=== PATIENT | female | born 1945 | race Caucasian/White ===

== ENCOUNTER 2020-03-31 11:06 | Observation (INO) ==
[2020-03-31] MEDS ORDERED: ENOXAPARIN 100 MG/ML SYRINGE SUBCUT STA (11:52)
[2020-03-31] MEDS ORDERED: ASPIRIN 325 MG TABLET PO STA (11:52)
[2020-03-31] MEDS ORDERED: NITROGLYCERIN SL 0.4 MG TABLET SL PRN (11:52)
[2020-03-31 12:28] LABS: Basophils # 0.1 10*3/uL (0.0-0.2); Basophils % 0.9 % (0.0-0.8); Eosinophils # 0.4 10*3/uL (0.0-0.87); Eosinophils % 6.9 % (0.00-10.9); Hematocrit 40.3 VOL% (35.7-47.0); Hemoglobin 13.1 GM/DL (12.0-16.0); Immature Granulocytes % 0.2 %; Immature Granulocytes Absolute 0.01 #; Lymphocytes # 1.3 10*3/uL (1.4-4.0); Lymphocytes % 23.6 % (21.3-54.2); Mean Corpuscular HGB Conc 32.5 GM/DL (32-36); Mean Corpuscular Volume 91.2 FL (87-102); Mean Platelet Volume 11.1 FL (9.6-12.0); Monocytes % 7.6 % (1.7-12.7); Neutrophils % 60.8 % (38.7-73.9); Platelet Count 231 T/CUMM (130-400); Red Blood Count 4.42 MC/CUMM (3.8-5.5); Red Cell Distribution Width 13.6 % (9.3-17.3); White Blood Count 5.4 T/CUMM (4-12)
[2020-03-31 12:52] LABS: Albumin 3.8 G/DL (3.4-5.0); Bilirubin,Total 0.5 MG/DL (0.2-1.0); Calcium 9.2 MG/DL (8.5-10.1); Osmolality,Calculated 284.1 MOS/KG (273-304); Total Protein 6.7 G/DL (6.4-8.3)
[2020-03-31] MEDS ORDERED: ZALEPLON 5 MG CAPSULE PO PRN (14:08)
[2020-03-31] MEDS ORDERED: SIMETHICONE CHEW 125 MG TABLET PO PRN (14:08)
[2020-03-31] MEDS ORDERED: MAGNESIUM SULF RIDER 2 GM in PREMIX 1 EACH IV PRN (14:08)
[2020-03-31] MEDS ORDERED: hydrALAZINE 20 MG/1 ML VIAL IV PRN (14:08)
[2020-03-31] MEDS ORDERED: MAGNESIUM SULF RIDER 4 GM in PREMIX 1 EACH IV PRN (14:08)
[2020-03-31] MEDS ORDERED: MORPHINE 4 MG/1 ML VIAL IV PRN (14:08)
[2020-03-31] MEDS ORDERED: BISACODYL 5 MG TABLET PO PRN (14:08)
[2020-03-31] MEDS ORDERED: diphenhydrAMINE CAP 25 MG CAPSULE PO PRN (14:08)
[2020-03-31] MEDS ORDERED: POTASSIUM CHLORIDE 20 MEQ TABLET PO PRN (14:08)
[2020-03-31] MEDS ORDERED: ONDANSETRON 4 MG/2 ML VIAL IV PRN (14:08)
[2020-03-31] MEDS ORDERED: CALCIUM CARBONATE CHEW 500 MG TABLET PO PRN (14:08)
[2020-03-31] MEDS ORDERED: LACTULOSE 20 GM/30 ML UDCUP PO PRN (14:08)
[2020-03-31] MEDS ORDERED: ALUMINUM/MAGNES/SIMETH MAX STR 30 ML UDCUP PO PRN (14:08)
[2020-03-31] MEDS ORDERED: ACETAMINOPHEN 325 MG TABLET PO PRN (14:08)
[2020-03-31] MEDS: NITROGLYCERIN 2% OINT 1 INCH/GM PACK TOP SCH ×2 (15:30→18:19)
[2020-03-31] MEDS: INSULIN LISPRO 100 UNIT/ML SUBCUT SCH ×2 (17:07→22:00)
[2020-03-31] MEDS ORDERED: INSULIN DEGLUDEC SUBCUT SCH (21:00)
[2020-03-31] MEDS ORDERED: DICLOFENAC SUBMICRONIZED 18 MG PO SCH (21:00)
[2020-03-31] MEDS ORDERED: LIRAGLUTIDE SUBCUT SCH (21:00)
[2020-03-31] MEDS: POTASSIUM CHLORIDE 8 MEQ CAPSULE PO SCH (21:25)
[2020-03-31] MEDS: TICAGRELOR 90 MG TABLET PO SCH (21:25)
[2020-03-31] MEDS: ASPIRIN EC 81 MG TABLET PO SCH (21:25)
[2020-03-31] MEDS: carvediloL 12.5 MG TABLET PO SCH (21:25)
[2020-04-01] MEDS: NITROGLYCERIN 2% OINT 1 INCH/GM PACK TOP SCH ×4 (00:56→18:45)
[2020-04-01 04:09] LABS: Basophils # 0.1 10*3/uL (0.0-0.2); Basophils % 1.3 % (0.0-0.8); Eosinophils # 0.5 10*3/uL (0.0-0.87); Eosinophils % 8.6 % (0.00-10.9); Hematocrit 37.7 VOL% (35.7-47.0); Hemoglobin 12.1 GM/DL (12.0-16.0); Immature Granulocytes % 0.4 %; Immature Granulocytes Absolute 0.02 #; Lymphocytes # 1.6 10*3/uL (1.4-4.0); Lymphocytes % 30.7 % (21.3-54.2); Mean Corpuscular HGB Conc 32.1 GM/DL (32-36); Mean Corpuscular Volume 92.6 FL (87-102); Mean Platelet Volume 11.1 FL (9.6-12.0); Monocytes % 7.9 % (1.7-12.7); Neutrophils % 51.1 % (38.7-73.9); Platelet Count 226 T/CUMM (130-400); Red Blood Count 4.07 MC/CUMM (3.8-5.5); Red Cell Distribution Width 13.6 % (9.3-17.3); White Blood Count 5.3 T/CUMM (4-12)
[2020-04-01 04:46] LABS: Blood Urea Nitrogen 25 MG/DL (7-18); Calcium 8.7 MG/DL (8.5-10.1); Estimated Glom Filtration Rate 49 ML/MIN; Glucose 119 MG/DL (74-106); HDL Cholesterol 31 MG/DL (40-60); Osmolality,Calculated 285.3 MOS/KG (273-304); Risk Ratio 3.45; Triglycerides 300 MG/DL (2-150); Troponin I < 0.015 NG/ML (0.00-0.045)
[2020-04-01] MEDS: INSULIN LISPRO 100 UNIT/ML SUBCUT SCH ×4 (07:26→21:10)
[2020-04-01] MEDS: OLMESARTAN 20 MG TABLET PO SCH (08:49)
[2020-04-01] MEDS: FENOFIBRATE 145 MG TABLET PO SCH (08:49)
[2020-04-01] MEDS: TICAGRELOR 90 MG TABLET PO SCH ×2 (08:49→21:10)
[2020-04-01] MEDS: POTASSIUM CHLORIDE 8 MEQ CAPSULE PO SCH ×2 (08:49→21:10)
[2020-04-01] MEDS: ATORVASTATIN 40 MG TABLET PO SCH (08:49)
[2020-04-01] MEDS: PANTOPRAZOLE 40 MG TABLET PO SCH (08:49)
[2020-04-01] MEDS: carvediloL 12.5 MG TABLET PO SCH ×2 (08:49→21:10)
[2020-04-01] MEDS ORDERED: ENOXAPARIN 40 MG/0.4 ML SYRINGE SUBCUT SCH (09:00)
[2020-04-01] MEDS ORDERED: NON-FORMULARY MEDICATION (Dapagliflozin [Farxiga] 10 MG) PO SCH (09:00)
[2020-04-01] MEDS ORDERED: MAGNESIUM SULF RIDER 2 GM in PREMIX 1 EACH IV PRN (10:02)
[2020-04-01] MEDS ORDERED: POTASSIUM CHLORIDE RIDER 10 MEQ in PREMIX 1 EACH IV PRN (10:02)
[2020-04-01] MEDS ORDERED: diphenhydrAMINE CAP 25 MG CAPSULE PO ONE (10:02)
[2020-04-01] MEDS ORDERED: DIAZEPAM 5 MG TABLET PO ONE (10:02)
[2020-04-01] MEDS ORDERED: LIDOCAINE 1% 20 ML VIAL ONE (10:22)
[2020-04-01] MEDS ORDERED: HYDROmorphone 2 MG/1 ML VIAL ONE (10:26)
[2020-04-01] MEDS ORDERED: MIDAZOLAM 2 MG/2 ML VIAL ONE (10:27)
[2020-04-01] MEDS ORDERED: ENOXAPARIN 60 MG/0.6 ML SYRINGE ONE (11:23)
[2020-04-01] MEDS ORDERED: LABETALOL 20 MG/4 ML SYRINGE IV ONE (11:40)
[2020-04-01] MEDS ORDERED: NITROGLYCERIN DRIP 50 MG/250 ML BOTTLE IV ONE (11:44)
[2020-04-01 13:13] LABS: Troponin I < 0.015 NG/ML (0.00-0.045)
[2020-04-01] MEDS: ASPIRIN EC 81 MG TABLET PO SCH (21:10)
[2020-04-01] MEDS: CHLORPHENIRAMINE PHENYLEPHRINE PO SCH (21:10)
[2020-04-02] MEDS: NITROGLYCERIN 2% OINT 1 INCH/GM PACK TOP SCH ×3 (00:16→12:02)
[2020-04-02 05:02] LABS: Basophils % 0.7 % (0.0-0.8); Eosinophils # 0.4 10*3/uL (0.0-0.87); Hematocrit 39.3 VOL% (35.7-47.0); Hemoglobin 12.6 GM/DL (12.0-16.0); Immature Granulocytes % 0.3 %; Immature Granulocytes Absolute 0.02 #; Lymphocytes # 0.9 10*3/uL (1.4-4.0); Lymphocytes % 14.9 % (21.3-54.2); Mean Corpuscular HGB Conc 32.1 GM/DL (32-36); Mean Corpuscular Volume 91.4 FL (87-102); Mean Platelet Volume 11.5 FL (9.6-12.0); Monocytes % 6.9 % (1.7-12.7); Neutrophils % 71.2 % (38.7-73.9); Platelet Count 217 T/CUMM (130-400); Red Cell Distribution Width 13.6 % (9.3-17.3)
[2020-04-02 05:11] LABS: Calcium 8.6 MG/DL (8.5-10.1); Osmolality,Calculated 286.3 MOS/KG (273-304)
[2020-04-02 05:15] LABS: Troponin I 0.134 NG/ML (0.00-0.045)
[2020-04-02] MEDS: INSULIN LISPRO 100 UNIT/ML SUBCUT SCH ×2 (08:13→12:02)
[2020-04-02] MEDS ORDERED: EZETIMIBE 10 MG TABLET PO SCH (09:00)
[2020-04-02] MEDS: OLMESARTAN 20 MG TABLET PO SCH (09:24)
[2020-04-02] MEDS: CHLORPHENIRAMINE PHENYLEPHRINE PO SCH (09:24)
[2020-04-02] MEDS: TICAGRELOR 90 MG TABLET PO SCH (09:24)
[2020-04-02] MEDS: POTASSIUM CHLORIDE 8 MEQ CAPSULE PO SCH (09:25)
[2020-04-02] MEDS: ATORVASTATIN 40 MG TABLET PO SCH (09:25)
[2020-04-02] MEDS: FENOFIBRATE 145 MG TABLET PO SCH (09:25)
[2020-04-02] MEDS: carvediloL 12.5 MG TABLET PO SCH (09:25)
[2020-04-02] MEDS: PANTOPRAZOLE 40 MG TABLET PO SCH (09:25)
[2020-04-02 11:27] VITALS: BP 150/76
[2020-04-02] MEDS ORDERED: amLODIPine 2.5 MG TABLET PO SCH (11:30)
== END 2020-04-02 13:01 | disposition home or self-care (01) ==
LOC: N.EDINP 11:06 → N.ED 11:06 → N.TELEN 16:45
PROVIDERS: ADMIT Internal Medicine Cardiovascular Disease; ATTEND Internal Medicine Cardiovascular Disease